=== PATIENT | male | born 1995 ===

== ENCOUNTER → 2018-04-15 | Outpatient (CLI) | payer OTHER ==
[2018-04-15 17:48] LABS: Adenovirus F 40/41 Not Detected (NOT DETECT); Astrovirus Not Detected (NOT DETECT); Campylobacter Sp Not Detected (NOT DETECT); Cryptosporidium Not Detected (NOT DETECT); Cyclospora Cayetanensis Not Detected (NOT DETECT); E. Coli O157 Not Detected (NOT DETECT); Entamoeba Histolytica Not Detected (NOT DETECT); Enteroaggregative E. coli-EAEC Not Detected (NOT DETECT); Enteropathogenic E. coli-EPEC Not Detected (NOT DETECT); Enterotoxigenic E. coli-ETEC Not Detected (NOT DETECT); Giardia Lamblia Not Detected (NOT DETECT); Norovirus GI/GII Not Detected (NOT DETECT); Plesiomonas Shigelloides Not Detected (NOT DETECT); Rotavirus A Not Detected (NOT DETECT); Salmonella Sp Not Detected (NOT DETECT); Sapovirus Not Detected (NOT DETECT); Shiga Toxin-prod E. coli-STEC Not Detected (NOT DETECT); Shigella/Enteroin E. coli-EIEC Not Detected (NOT DETECT); Vibrio Cholerae Not Detected (NOT DETECT); Vibrio Sp Not Detected (NOT DETECT); Yersinia Enterocolitica Not Detected (NOT DETECT)
== END ==
LOC: LAB SHORT 15:05
PROVIDERS: Physician Assistant
DX: R19.5 Other fecal abnormalities (principal); K52.3 Indeterminate colitis
CPT/HCPCS: 87507

== ENCOUNTER 2018-05-12 08:45 | Day surgery (SDC) | payer OTHER ==
[~2018-05-12] VITALS: Ht 177.8 cm; Wt 82.8 kg
[~2018-05-12 08:45] MED LIST: Omeprazole20 M1
== END 2018-05-12 11:05 | disposition home or self-care (01) ==
LOC: ORSCSDS 08:45
PROVIDERS: Internal Medicine Gastroenterology
PROC: 0DBP8ZX Excision of Rectum, Via Natural or Artificial Opening Endoscopic, Diagnostic (ICD-10-PCS; principal; 2018-05-12 10:00)
PROC: 0DBN8ZX Excision of Sigmoid Colon, Via Natural or Artificial Opening Endoscopic, Diagnostic (ICD-10-PCS; principal; 2018-05-12 10:00)
DX: K92.1 Melena (principal); R19.7 Diarrhea, unspecified; D12.5 Benign neoplasm of sigmoid colon
CPT/HCPCS: 88305; J7120

== ENCOUNTER → 2018-12-17 | Outpatient (CLI) | payer OTHER ==
[~2018-12-17] MED LIST changes: +Norco 5-325 Ta1 EACH PO
== END | disposition home or self-care (01) ==
LOC: LAB SHORT 15:00 → LAB EV 15:00
DX: L02.91 Cutaneous abscess, unspecified (principal)
CPT/HCPCS: 87070; 87077; 87147; 87186; 87205

== ENCOUNTER 2018-12-20 04:50 | Emergency (ER) | payer OTHER ==
[~2018-12-20] VITALS: Ht 177.8 cm; Wt 86.2 kg
== END 2018-12-20 08:06 | disposition home or self-care (01) ==
LOC: ER 04:50
DX: L03.119 Cellulitis of unspecified part of limb (principal); Z79.891 Long term (current) use of opiate analgesic
CPT/HCPCS: J3370; J7050

== ENCOUNTER 2018-12-20 16:33 | Emergency (ER) | payer OTHER ==
[~2018-12-20] VITALS: Ht 175.3 cm; Wt 87.5 kg
== END 2018-12-20 19:05 | disposition home or self-care (01) ==
LOC: ER 16:33
DX: L03.115 Cellulitis of right lower limb (principal)
CPT/HCPCS: J3370; J7050

== ENCOUNTER 2018-12-21 08:39 | Emergency (ER) | payer OTHER ==
[~2018-12-21] VITALS: Ht 175.3 cm; Wt 87.1 kg
[2018-12-22] MEDS ORDERED: DAPTOMYCIN500 MG IV (09:38)
== END 2018-12-21 11:03 | disposition home or self-care (01) ==
LOC: ER 08:39
DX: L03.116 Cellulitis of left lower limb (principal); L02.415 Cutaneous abscess of right lower limb
CPT/HCPCS: 96365; 99281-25; J0878

== ENCOUNTER 2018-12-22 00:04 | Day surgery (SDC) | payer OTHER ==
[2018-12-22] MEDS ORDERED: DAPTOMYCIN500 MG IV (09:38)
--- NOTE | 2018-12-22 09:40 | NUR ---
PT SPEAKS LITTLE SCOTTISH. THIS RN USED TAMERA ON CELLPHONE THAT TRANSLATES SCOTTISH TO ENGLISH, ENGLISH TO SCOTTISH. ABLE TO ANSWER ANY QUESTIONS. CALL LIGHT WITHIN REACH.
== END 2018-12-22 10:35 | disposition home or self-care (01) ==
LOC: ATC 00:04
DX: L03.90 Cellulitis, unspecified (principal)
CPT/HCPCS: 96365; J0878

== ENCOUNTER 2018-12-24 05:19 | Day surgery (SDC) | payer OTHER ==
[~2018-12-24 05:19] MED LIST changes: +DAPTOMYCIN500 MG IV
[2018-12-26] MEDS ORDERED: Bactrim 400-801 EACH PO (08:47)
== END 2018-12-24 09:27 | disposition home or self-care (01) ==
LOC: ATC 05:19
DX: L03.90 Cellulitis, unspecified (principal)
CPT/HCPCS: 96365; J0878

== ENCOUNTER 2018-12-25 00:45 | Day surgery (SDC) | payer OTHER ==
[2018-12-26] MEDS ORDERED: Bactrim 400-801 EACH PO (08:47)
== END 2018-12-25 09:22 | disposition home or self-care (01) ==
LOC: ATC 00:45
DX: L03.90 Cellulitis, unspecified (principal)
CPT/HCPCS: 96365; J0878

== ENCOUNTER 2020-06-14 22:32 | Observation (INO) | payer OTHER ==
[~2020-06-14] VITALS: Ht 177.8 cm; Wt 96.3 kg
[~2020-06-14 22:32] MED LIST changes: +Bactrim 400-801 EACH PO
[2020-06-14 22:44] LABS: BASOPHILS ABSOLUTE AUTO 0.02 K/mm3 (0.00-0.23); BASOPHILS PERCENT AUTO 0 % (0-2); EOSINOPHILS ABSOLUTE AUTO 0.13 K/mm3 (0.00-0.68); EOSINOPHILS PERCENT AUTO 2 % (0-6); Hematocrit 46.3 % (37.0-53.0); Hemoglobin 15.3 g/dL (13.5-17.5); IMMATURE GRAN ABSOLUTE AUTO 0.04 K/mm3 (0.00-0.10); IMMATURE GRAN PERCENT AUTO 1 % (0-1); LYMPHOCYTES ABSOLUTE AUTO 3.59 K/mm3 (0.84-5.20); LYMPHOCYTES PERCENT AUTO 47 % (21-46); MONOCYTES ABSOLUTE AUTO 0.63 K/mm3 (0.16-1.47); MONOCYTES PERCENT AUTO 8 % (4-13); Mean Corpuscular HGB 29.2 pg (26.0-34.0); Mean Corpuscular Volume 88 fL (80-100); Mean Platelet Volume 10.4 fL (9.1-12.4); NEUTROPHILS PERCENT AUTO 42 % (41-73); Platelet Count 226 K/mm3 (150-400); RDW Coefficient Variation 13.4 % (11.7-14.2); RDW Standard Deviation 43.3 fL (35.1-46.3); Red Blood Cell Count 5.24 M/mm3 (4.30-5.90); White Blood Cell Count 7.61 K/mm3 (4.00-11.30)
[2020-06-14 23:00] LABS: International Normalized Ratio 1.04; Prothrombin Time Results 11.1 Sec (9.7-11.5)
[2020-06-14 23:02] LABS: Alanine Aminotransfer (ALT/SGP 40 U/L (12-78); Albumin, Blood 4.2 g/dL (3.4-5.0); Albumin/Globulin Ratio 1.1 (0.8-1.8); Anion Gap 8 mmol/L (6-16); Aspartate Aminotrans (AST/SGOT 26 U/L (12-37); Bilirubin, Total 0.4 mg/dL (0.1-1.0); Blood Urea Nitrogen 15 mg/dL (8-24); Bun/Creatinine Ratio 16.1 (12.0-20.0); CO2, Blood 25 mmol/L (21-32); Calcium, Blood 8.6 mg/dL (8.5-10.1); Chloride, Blood 109 mmol/L (98-108); Creatinine, Blood 0.93 mg/dL (0.60-1.20); Ethanol (Alcohol), Blood, Med 205 mg/dL; Globulin, Blood 3.8 g/dL (2.2-4.0); Glomerular Filtration Rate >60 (60-); Glucose, Blood 108 mg/dL (70-99); Potassium, Blood 3.4 mmol/L (3.5-5.5); Sodium, Blood 142 mmol/L (136-145)
[2020-06-14 23:05] LABS: Alk Phos 88 U/L (50-136); Beta HCG, Quantitative, Serum <1 mIU/mL (0-1); CPK Creatine Kinase 273 U/L (39-308)
[2020-06-14 23:35] LABS: Source, Urine Clean Catch
[2020-06-14 23:36] LABS: Bilirubin, Urine Neg (Neg); Blood, Urine Neg (Neg); Glucose Qualitative, Urine Neg (Neg); Ketones, Urine Neg (Neg); Leukocyte Esterase, Urine Neg (Neg); Nitrite, Urine Neg (Neg); Protein, Urine Neg (Neg); Specific Gravity, Urine 1.005 (1.003-1.022); Urobilinogen, Urine NORM (Normal)
[2020-06-14 23:40] LABS: Appearance, Urine Clear (Clear); Color, Urine Pale Yellow (P-Yellow)
[2020-06-15 00:24] LABS: U Amphetamine Screen Not Detected; U Barbituate Screen Not Detected; U Benzodiazapine Screen Not Detected; U Buprenorphine Screen Not Detected; U Cannabinoids Screen Not Detected; U Cocaine Screen Not Detected; U Methadone Screen Not Detected; U Methamphetamine Screen Not Detected; U Opiates Screen DETECTED; U Oxycodone Screen Not Detected; U Phencyclidine Screen Not Detected; U Propoxyphene Screen Not Detected
--- NOTE | 2020-06-15 01:20 | NUR ---
RECEIVED HAND OFF FROM Carlos MORIN RN USING SBAR. TRANSPORTED TO ROOM 210 VIA STRETCHER. TRANSFERED SELF TO BED WITH STANDBY ASSIST, TOLERATED WELL. AAO X3, PIÑA, FOLLOWS ALL COMMANDS. KLETSEL DEHE WINTUN LANGUAGE IS AZERI, AND SPEAKS MINIMAL KINYARWANDA. KENNY GERMAN, PT'S COUSIN AT BEDSIDE TO ASSIST WITH GETTING PT SETTLED AND TRANSLATE FOR PT NEEDED. SHE LEFT HER PHONE NUMBER WITH NURSING IN CASE SHE IS NEEDED. DAY [phone], NIGHT [phone] NURSING OFFERED USE OF TELEPHONE TRANSLATING SYSTEM TO PT WITH COUSIN IN ROOM, BOTH REFUSED SERVICE. ORIENTED TO ROOM, CALL SYSTEM, AND POC, VOICES UNDERSTANDING. SCATTERED ABRASIONS NOTED TO UPPER TRUNK AND LUE. TWO LACERATIONS NOTED TO LUE, ONE ON THE INNER ASPECT OF HIS FA WITH 2 STICHES NOTED. AND THE RIGHT INDEX FINGER THAT IS WRAPPED WITH IODOFORM GUAZE AND [place]. STATES CURRENT PAIN LEVEL AT 5/10, MEDICATED PER EMAR. IVABX AND IVF STARTED PER EMAR. CONTINENT OF BOWEL AND BLADDER, USES COMMODE. DENIES FURTHER NEEDS OR WANTS A THIS TIME. ADMISSION ASSESSMENT IN PROGRESS. SAFETY MEASURES IN PLACE. WILL CONTINUE TO MONITOR.
--- NOTE | 2020-06-15 04:48 | NUR ---
SHIFT SUMMARY LYING ON RIGHT SIDE WITH EYES CLOSED. IVF INFUSING PER MD ORDERS. IVABX AND TETENUS GIVEN PER MD ORDERS. DENIES PAIN, DISCOMFORT, OR FURTHER NEEDS AT THIS TIME. STATES HE IS LOOKING FORWARD TO GOING HOME SOON HE CAN IN THE MORNING. SAFETY MEASURES IN PLACE. WILL CONTINUE TO MONITOR AND GIVE HAND OFF TO ONCOMING SHIFT USING SBAR DURING BEDSIDE REPORT
[2020-06-15] MEDS ORDERED: Oxycodone HCl5 M1 PO (13:16)
--- NOTE | 2020-06-15 16:54 | NUR ---
DISCHARGE PT PROVIDED WITH WRITTEN AND VERBAL DISCHARGE INSTRUCTIONS. WHISKEY FILTERER PHONE WAS USED TO PROVIDE DISCHARGE INSTRUCTIONS; HE REPORTED UNDERSTANDING. WAS UNABLE TO PROVIDE WRITTEN INSTRUCTIONS IN [place]; HOWEVER PT'S S/O AND HIS COUSIN SPEAK FLUENT YI AND UNDERSTOOD INSTRUCTIONS WELL. PT EDUCATED TO FOLLOW-UP WITH DR. GARNER OR PCP FOR SUTURE REMOVAL. PT EDUCATED ABOUT SIGNS OR SYMPTOMS OF COMPARTMENT SYNDROME TO WATCH FOR. CAP REFIL TO LEFT HAND WNL, PULSE PRESENT AND PALPABLE, PT IS ABLE TO OPEN AND CLOSE HIS HAND WITHOUT DIFFICULTY. PT AMBULATED OUT WITHOUT ASSISTANCE.
== END 2020-06-15 15:57 | disposition home or self-care (01) ==
LOC: ER 22:32 → SURS 22:33
PROVIDERS: Emergency Medicine; ADMIT Surgery
DX: S57.82XA Crushing injury of left forearm, initial encounter (principal); V89.2XXA Person injured in unspecified motor-vehicle accident, traffic, initial encounter; F10.129 Alcohol abuse with intoxication, unspecified; Y90.7 Blood alcohol level of 200-239 mg/100 ml
CPT/HCPCS: 12001; 70450; 71045; 71260; 72125; 72170; 73090; 73120; 74177; 80053; 81003; 82550; 83690; 84702; 85025; 85610; 86850; 86900; 86901; 86923; 90471; 90714; 96361-59; 96374-59; 96375-59; 99285-25; G0378; G0480; J0690; J1170; J2405; J3010; J7030; Q9967

== ENCOUNTER → 2022-11-25 | Outpatient (CLI) | payer OTHER ==
[~2022-11-25] MED LIST changes: +Oxycodone HCl5 M1 PO
[2022-11-28 03:08] LABS: CHLAMYDIA TRACHOMATIS, NAA Negative (Negative)
== END | disposition home or self-care (01) ==
LOC: LAB SHORT 08:00
PROVIDERS: Physician Assistant
DX: Z72.51 High risk heterosexual behavior (principal)
CPT/HCPCS: 86592; 87491; 87591